=== PATIENT | male | born 1940 | race Caucasian/White ===

== ENCOUNTER 2018-09-21 12:00 | Outpatient (RCR) | payer MEDICARE | END 2018-12-20 | disposition home or self-care (01) | LOC: LAB 12:00 | PROVIDERS: ATTEND Pediatrics | DX: I48.91 Unspecified atrial fibrillation (principal) ==

== ENCOUNTER → 2018-09-21 | Outpatient (CLI) | payer MEDICARE, BC ==
[2018-09-21 13:13] LABS: BASOPHILS # (AUTO) 0.1 10^3/uL (0.0-0.1); BASOPHILS % (AUTO) 1 % (0-10); EOSINOPHILS # (AUTO) 0.2 10^3/uL (0.0-0.3); EOSINOPHILS % (AUTO) 2 % (0-10); HEMATOCRIT 35 % (40-54); HEMOGLOBIN 11.4 G/DL (13.3-17.7); LYMPHOCYTES % (AUTO) 10 % (12-44); MEAN CORPUSCULAR HEMOGLOBIN 31 PG (25-34); MEAN CORPUSCULAR HGB CONC 33 G/DL (32-36); MEAN CORPUSCULAR VOLUME 94 FL (80-99); MEAN PLATELET VOLUME 10.3 FL (7.4-10.4); MONOCYTES # (AUTO) 1.1 X 10^3 (0.0-1.0); MONOCYTES % (AUTO) 10 % (0-12); NEUTROPHILS # (AUTO) 8.3 X 10^3 (1.8-7.8); NEUTROPHILS % (AUTO) 78 % (42-75); PLATELET COUNT 195 10^3/uL (130-400); RED CELL DISTRIBUTION WIDTH 14.8 % (10.0-14.5); WHITE BLOOD COUNT 10.6 10^3/uL (4.3-11.0)
[2018-09-21 13:14] LABS: INR 1.3 (0.8-1.4); PROTHROMBIN TIME PATIENT 16.5 SEC (12.2-14.7)
[2018-09-21 14:36] LABS: BACTERIA,URINE NEGATIVE /HPF; BILIRUBIN,URINE NEGATIVE (NEGATIVE); CLARITY,URINE CLEAR; COLOR,URINE YELLOW; GLUCOSE, URINE (UA) NEGATIVE (NEGATIVE); KETONES,URINE NEGATIVE (NEGATIVE); LEUKOCYTE ESTERASE ,URINE NEGATIVE (NEGATIVE); NITRITE,URINE NEGATIVE (NEGATIVE); PH,URINE 5.5 (5-9); PROTEIN,URINE NEGATIVE (NEGATIVE); SQUAMOUS EPITHELIAL CELL,UR 0-2 /HPF; UROBILINOGEN,URINE 0.2 MG/DL (NORMAL)
[2018-09-21 15:08] LABS: CALCIUM 9.7 MG/DL (8.5-10.1); CREATININE SERUM 2.05 MG/DL (0.60-1.30); PHOSPHORUS 3.2 MG/DL (2.3-4.7); POTASSIUM 4.2 MMOL/L (3.6-5.0)
== END ==
LOC: LAB FS 11:44
PROVIDERS: ATTEND Internal Medicine Critical Care Medicine
DX: I48.91 Unspecified atrial fibrillation (principal); N18.3 Chronic kidney disease, stage 3 (moderate)
CPT/HCPCS: 36415; 80069; 81000; 82570; 83970; 84156; 85025; 85610

== ENCOUNTER → 2018-11-11 | Outpatient (CLI) | payer MEDICARE ==
[2018-11-11 16:25] LABS: CALCIUM 9.7 MG/DL (8.5-10.1); CREATININE SERUM 2.09 MG/DL (0.60-1.30)
== END ==
LOC: LAB FS 14:58
PROVIDERS: ATTEND Internal Medicine Critical Care Medicine
DX: N18.3 Chronic kidney disease, stage 3 (moderate) (principal); E87.70 Fluid overload, unspecified; R60.0 Localized edema
CPT/HCPCS: 36415; 80048

== ENCOUNTER → 2018-12-02 | Outpatient (CLI) | payer MEDICARE ==
[2018-12-02 16:20] LABS: INR 2.1 (0.8-1.4); PROTHROMBIN TIME PATIENT 24.5 SEC (12.2-14.7)
[2018-12-02 16:34] LABS: POTASSIUM 3.6 MMOL/L (3.6-5.0)
[2018-12-02 16:35] LABS: BILIRUBIN,TOTAL 0.7 MG/DL (0.1-1.0); CALCIUM 9.7 MG/DL (8.5-10.1); CREATININE SERUM 2.23 MG/DL (0.60-1.30); TOTAL PROTEIN 8.5 GM/DL (6.4-8.2)
[2018-12-03 15:15] LABS: FREE T4 (FREE THYROXINE) 1.1 NG/DL (0.70-1.48)
== END ==
LOC: LAB FS 15:11
PROVIDERS: ATTEND Pediatrics
DX: I48.91 Unspecified atrial fibrillation (principal); E03.8 Other specified hypothyroidism; E11.00 Type 2 diabetes mellitus with hyperosmolarity without nonketotic hyperglycemic-hyperosmolar coma (NKHHC); I10 Essential (primary) hypertension
CPT/HCPCS: 36415; 80053; 83036; 84439; 84443; 85610

== ENCOUNTER → 2019-04-01 | Outpatient (CLI) | payer MEDICARE ==
[2019-04-01 10:29] LABS: INR 1.9 (0.8-1.4)
[2019-04-01 10:34] LABS: BILIRUBIN,TOTAL 0.6 MG/DL (0.1-1.0); CREATININE SERUM 2.25 MG/DL (0.60-1.30); POTASSIUM 4.1 MMOL/L (3.6-5.0)
[2019-04-01 10:35] LABS: TOTAL PROTEIN 8.7 GM/DL (6.4-8.2)
[2019-04-02 14:56] LABS: FREE T4 (FREE THYROXINE) 1.07 NG/DL (0.70-1.48)
== END ==
LOC: LAB FS 09:09
PROVIDERS: ATTEND Pediatrics
DX: E11.22 Type 2 diabetes mellitus with diabetic chronic kidney disease (principal); E03.9 Hypothyroidism, unspecified; N18.3 Chronic kidney disease, stage 3 (moderate); Z92.29 Personal history of other drug therapy; Z79.4 Long term (current) use of insulin
CPT/HCPCS: 36415; 80053; 83036; 84439; 84443; 85610

== ENCOUNTER → 2019-04-01 | Outpatient (CLI) | payer MEDICARE ==
[2019-04-01 10:02] LABS: BASOPHILS % (AUTO) 1 % (0-10); EOSINOPHILS % (AUTO) 3 % (0-10); HEMATOCRIT 34 % (40-54); HEMOGLOBIN 10.8 G/DL (13.3-17.7); LYMPHOCYTES % (AUTO) 13 % (12-44); MEAN CORPUSCULAR HEMOGLOBIN 30 PG (25-34); MEAN CORPUSCULAR HGB CONC 32 G/DL (32-36); MEAN CORPUSCULAR VOLUME 94 FL (80-99); MEAN PLATELET VOLUME 10.4 FL (7.4-10.4); MONOCYTES % (AUTO) 10 % (0-12); NEUTROPHILS % (AUTO) 73 % (42-75); PLATELET COUNT 275 10^3/uL (130-400); WHITE BLOOD COUNT 9.5 10^3/uL (4.3-11.0)
[2019-04-01 10:03] LABS: BASOPHILS # (AUTO) 0.1 10^3/uL (0.0-0.1); EOSINOPHILS # (AUTO) 0.3 10^3/uL (0.0-0.3); LYMPHOCYTES # (AUTO) 1.2 X 10^3 (1.0-4.0)
[2019-04-01 11:32] LABS: BILIRUBIN,URINE NEGATIVE (NEGATIVE); CLARITY,URINE CLEAR; COLOR,URINE YELLOW; GLUCOSE, URINE (UA) NEGATIVE (NEGATIVE); KETONES,URINE NEGATIVE (NEGATIVE); LEUKOCYTE ESTERASE ,URINE NEGATIVE (NEGATIVE); NITRITE,URINE NEGATIVE (NEGATIVE); PROTEIN,URINE 1+ (NEGATIVE); SQUAMOUS EPITHELIAL CELL,UR RARE /HPF
[2019-04-02 12:00] LABS: POTASSIUM 4.6 MMOL/L (3.6-5.0)
[2019-04-02 12:01] LABS: ALBUMIN 3.9 GM/DL (3.2-4.5); CALCIUM 10.1 MG/DL (8.5-10.1); CREATININE SERUM 2.29 MG/DL (0.60-1.30)
[2019-04-02 15:24] LABS: PHOSPHORUS 3.2 MG/DL (2.3-4.7)
== END ==
LOC: LAB FS 09:14
PROVIDERS: ATTEND Internal Medicine Critical Care Medicine
DX: N18.3 Chronic kidney disease, stage 3 (moderate) (principal)
CPT/HCPCS: 36415; 80069; 81000; 82570; 83970; 84100; 84156; 85025

== ENCOUNTER 2021-09-18 11:09 | Emergency (ER) | payer MEDICARE ==
[~2021-09-18] VITALS: Ht 180.3 cm; Wt 106.6 kg
--- NOTE | 2021-09-18 11:31 | ED General ---
General Chief Complaint: Respiratory Problems Stated Complaint: SOB Nursing Triage Note: PT TO ROOM FS01 VIA [facility] EMS FROM [facility] WITH C/O SOB. Source of Information: Patient, EMS History of Present Illness Date Seen by Provider: Sep 18, 2021 Time Seen by Provider: 11:09 Initial Comments 80-year-old male presenting from [facility] by EMS out of concern for possible recurrent pleural effusion. Patient states he has had pleural effusions that had to be drained. He reports that was done approximately a month ago when he was at [place]. He felt like the fluid was building up again. He had requested a nurse to listen to his lungs because he felt like he was getting recurrent effusion over the last few days. He said no one had listened to his lungs so he had just asked the nurse to do that. When they listened to his lungs they said that they could hear breath sounds on the right side so they were concerned that he had enough fluid he needed to be rushed to the emergency department. EMS was activated and brought him to the ED. Patient states he wanted an chest xray to look at his lungs and see how much fluid might be present. He denies any new concerns otherwise. He has no chest pains. He has shortness of breath increased with exertion. Timing/Duration: 3-4 Days Severity: Mild Modifying Factors: worse with Movement (exertion makes his shortness of breath worse) Associated Systoms: No Chest Pain, No Cough, No Diaphoresis, No Fever/Chills, No Headaches, No Loss of Appetite, No Malaise, No Nausea/Vomiting, No Rash, No Seizure; Shortness of Air; No Syncope; Weakness (generalized) Allergies and Home Medications Allergies Coded Allergies: penicillin V (Verified Allergy, Unknown, 09/18/21) Patient Home Medication List Home Medication List Reviewed: Yes Review of Systems Review of Systems Constitutional: No chills, No diaphoresis, No fever EENTM: no symptoms reported Respiratory: see HPI Cardiovascular: see HPI, edema (chronic and no worse than usual) Gastrointestinal: no symptoms reported Genitourinary: no symptoms reported Musculoskeletal: no symptoms reported Skin: no symptoms reported Psychiatric/Neurological: No Symptoms Reported Past Twrvdly-Kyxxmw-Rallhl Hx Patient Social History Tobacco Use?: No Use of E-Cig and/or Vaping dev: No Substance use?: No Alcohol Use?: No Past Medical History Surgery/Hospitalization HX: CHF, HTN, Chronic kidney failure, Diabetes Mellitus Insulin Dependent Physical Exam Vital Signs Vital Signs - First Documented 09/18/21 09/18/21 11:09 12:20 Temp 36.6 Pulse 74 Resp 17 B/P (MAP) 128/62 (84) Pulse Ox 95 O2 Delivery Room Air Capillary Refill : Less Than 3 Seconds Height, Weight, BMI Height: '" Weight: lbs. oz. kg; 32.00 BMI Method: General Appearance: No Apparent Distress, Chronically ill Respiratory: Chest Non Tender, No Respiratory Distress, Accessory Muscle Use, Decreased Breath Sounds (especially in the bases right greater than left) Cardiovascular: Normal Peripheral Pulses, Irregularly Irregular Rectal: Deferred Extremity: Pedal Edema (3+ pitting edema BLE) Neurologic/Psychiatric: Alert Skin: Warm/Dry Progress/Results/Core Measures Suspected Sepsis SIRS Temperature: Pulse: 74 Respiratory Rate: 17 Blood Pressure 128 /62 Mean: 84 Results/Orders My Orders Orders - ILA GREEN MD Ekg Tracing (09/18/21 11:17) Chest Pa/Lat (2 View) (09/18/21 11:17) Vital Signs/I&O 09/18/21 09/18/21 11:09 12:20 Temp 36.6 Pulse 74 72 Resp 17 22 B/P (MAP) 128/62 (84) 139/50 Pulse Ox 95 O2 Delivery Room Air Capillary Refill : Less Than 3 Seconds Blood Pressure Mean: 84 Progress Note #1: Progress Note Obtain electrocardiogram and a chest x-ray. As patient had no other concerns at the moment will defer blood work for now. He was interested in seeing how much pleural effusion he might have so the x-ray will help show that. Progress Note #2: Progress Note Chest x-ray shows bilateral pleural effusion right worse than left. Nothing acute enough to require thoracentesis, especially with his oxygen saturation staying in mid 90s. Encouraged patient to continue on his medications and check back with the clinic. Given the information about the surgeons as he may require thoracentesis if he has increasing shortness of breath or fluid gets worse. ECG Initial ECG Impression Date: Sep 18, 2021 Initial ECG Impression Time: 11:15 Initial ECG Rate: 67 Initial ECG Rhythm: A Fib/Flutter Initial ECG Comparisson: No Previous ECG Available Comment Atrial fibrillation with a heart rate of 67 bpm. Right bundle branch block. No acute ST elevation. There is global T wave flattening. QT interval 438 ms with a QTc interval 463 ms. There is no prior tracing available for comparison. Diagnostic Imaging Diagonstic Imaging: Xray Plain Films/CT/US/NM/MRI: chest Comments [facility] [place], [place] NAME: FELIBERTO ARANDA [facility] REC#: [id number] PT STATUS: REG ER : 1940 PHYSICIAN: ILA GREEN MD ADMIT DATE: 09/18/21/ER FS Signed Date of Exam:09/18/21 CHEST PA/LAT (2 VIEW) CLINICAL INDICATIONS: Patient with shortness of breath. Patient has history of pleural effusions. EXAM: Chest x-ray PA and lateral views. COMPARISON: None. FINDINGS: There are small to moderate sized right pleural effusion and a small left pleural effusion. There is left basilar patchy airspace opacities and right lung base partial groundglass consolidation. The right side is affected more than the left. There is cardiomegaly with mild pulmonary vascular congestion. Bones show no significant abnormality. There is no pneumothorax. IMPRESSION: 1: There is cardiomegaly with mild pulmonary vascular congestion which may be seen with congestive heart failure. 2: There is bilateral pleural effusions (right side more than the left) and bibasilar atelectasis versus infiltrates (right side more than the left). These findings may also be related to pulmonary congestion. Dictated by: Dictated on workstation # [id number] Dict: 09/18/21 1152 Trans: 09/18/21 1202 [facility] [id number] Interpreted by: JIGNESH WAN MD Electronically signed by: JIGNESH WAN MD 09/18/21 1202 Reviewed: Reviewed by Me Departure Impression Primary Impression: Shortness of breath Additional Impressions: Recurrent pleural effusion on left Recurrent pleural effusion on right Disposition: 01 HOME, SELF-CARE Condition: Stable Departure-Patient Inst. Decision time for Depature: 11:58 Referrals: LUH KWONG MD (PCP/Family) Primary Care Physician ASHLEY DEMPSEY MD, TAKAAKI MD Patient Instructions: Shortness of Breath, Adult ED, Pleural Effusion (DC) Add. Discharge Instructions: You do have a pleural effusion on both sides but a little more on the right side. It is in the lower part of your lung at this point and not severe enough that you would have to get the fluid drained off at this point. Check with clinic or surgeon about scheduling outpatient procedure to get fluid drained off if you have continued trouble breathing or more issues with this. All discharge instructions reviewed with patient and/or family. Voiced understanding. Copy Copies To 1: ASHLEY DEMPSEY MD, MARC E MD Sep 18, 2021 11:31
--- NOTE | 2021-09-18 11:56 | Diagnostic Imaging Report ---
CLINICAL INDICATIONS: Patient with shortness of breath. Patient has history of pleural effusions. EXAM: Chest x-ray PA and lateral views. COMPARISON: None. FINDINGS: There are small to moderate sized right pleural effusion and a small left pleural effusion. There is left basilar patchy airspace opacities and right lung base partial groundglass consolidation. The right side is affected more than the left. There is cardiomegaly with mild pulmonary vascular congestion. Bones show no significant abnormality. There is no pneumothorax. IMPRESSION: 1: There is cardiomegaly with mild pulmonary vascular congestion which may be seen with congestive heart failure. 2: There is bilateral pleural effusions (right side more than the left) and bibasilar atelectasis versus infiltrates (right side more than the left). These findings may also be related to pulmonary congestion. Dictated by: Dictated on workstation # [id number]
[2021-09-18 12:20] VITALS: BP 139/50
== END 2021-09-18 12:21 | disposition home or self-care (01) ==
LOC: EDUNIT# 11:09 → ER FS 11:10
DX: R06.02 Shortness of breath (principal); J90 Pleural effusion, not elsewhere classified
CPT/HCPCS: 71046; 93005

== ENCOUNTER 2021-10-11 10:37 | Emergency (ER) | payer MEDICARE ==
[~2021-10-11] VITALS: Ht 180 cm; Wt 108.0 kg
--- NOTE | 2021-10-11 11:10 | ED General ---
General Chief Complaint: General Problems/Pain Stated Complaint: WEAKNESS Nursing Triage Note: Pt here from assisted living with low hgb. Hgb was 6.9. Pt has reported wound to his coccyx. Pt is alert and oriented. Pt has panting rr but he reports this is normal for him. Source of Information: Patient Exam Limitations: No Limitations History of Present Illness Date Seen by Provider: Oct 11, 2021 Time Seen by Provider: 10:54 Initial Comments Here from assisted living facility in [place] with report of low hemoglobin. Patient does have history of heart failure, renal failure and anemia secondary to that. He has had to have blood transfusion previously. Is also had to have fluid drained from the lung space abdominal space secondary to heart failure. He does not want dialysis and has not an option for him. He is here today because he has had increasing shortness of breath and had hemoglobin noted to be 6.9. He follows with [facility] with Dr. Dempsey. Denies fevers, chills, cough, sore throat, runny nose or diarrhea. Denies chest pain. Does sharma ve significant edema of both legs but states that is unchanged. Timing/Duration: 1 Week, Getting Worse Severity: Mild, Moderate Associated Systoms: No Chest Pain, No Cough, No Fever/Chills, No Nausea/Vomiting; Shortness of Air, Weakness Allergies and Home Medications Allergies Coded Allergies: penicillin V (Verified Allergy, Unknown, 09/18/21) Patient Home Medication List Home Medication List Reviewed: Yes Review of Systems Review of Systems Constitutional: see HPI; No chills, No fever; weakness EENTM: no symptoms reported Respiratory: No cough; short of breath Cardiovascular: No chest pain; edema Gastrointestinal: No diarrhea, No nausea, No vomiting Genitourinary: no symptoms reported Musculoskeletal: no symptoms reported Skin: change in color; No rash Psychiatric/Neurological: No Symptoms Reported All Other Systems Reviewed Negative Unless Noted: Yes Past Uhunveo-Szqgcf-Rzussg Hx Patient Social History Tobacco Use?: No Use of E-Cig and/or Vaping dev: No Substance use?: No Alcohol Use?: No Past Medical History Surgery/Hospitalization HX: CHF, HTN, Chronic kidney failure, Diabetes Mellitus Insulin Dependent Surgeries: Yes Respiratory: Yes Sleep Apnea Cardiac: Yes Atrial Fibrillation, Hypertension Neurological: No Genitourinary: Yes Renal Failure Gastrointestinal: Yes Liver Disease/Jaundice Endocrine: Yes Diabetes, Insulin dep Family Medical History Reviewed Nursing Family Hx No Pertinent Family Hx Physical Exam Vital Signs Vital Signs - First Documented 10/11/21 10:51 Temp 36.8 Pulse 62 Resp 18 B/P (MAP) 131/51 (77) Pulse Ox 98 O2 Delivery Nasal Cannula O2 Flow Rate 3.00 Capillary Refill : Height, Weight, BMI Height: '" Weight: lbs. oz. kg; 33.00 BMI Method: General Appearance: Chronically ill, Obese HEENT: PERRL/EOMI, Pharynx Normal Neck: Non Tender, Supple Respiratory: Lungs Clear, Decreased Breath Sounds Cardiovascular: Regular Rate, Rhythm, No Murmur Gastrointestinal: Soft, Distended Back: Normal Inspection, No CVA Tenderness, No Vertebral Tenderness Extremity: Non Tender, Pedal Edema (3+ pitting edema to upper legs bilateral) Neurologic/Psychiatric: Alert, Oriented x3 Skin: Normal Color, Warm/Dry Progress/Results/Core Measures Suspected Sepsis SIRS Temperature: Pulse: 62 Respiratory Rate: 18 Laboratory Tests 10/11/21 11:30: White Blood Count 7.4 Blood Pressure 131 /51 Mean: 77 Laboratory Tests 10/11/21 11:30: Creatinine 3.37H, Platelet Count 194, Total Bilirubin 1.0 Results/Orders Lab Results Laboratory Tests Test 10/11/21 11:30 10/11/21 14:19 Range/Units White Blood Count 7.4 4.3-11.0 10^3/uL Red Blood Count 2.38 L 4.30-5.52 10^6/uL Hemoglobin 7.4 L 13.3-17.7 g/dL Hematocrit 24 L 40-54 % Mean Corpuscular Volume 101 H 80-99 fL Mean Corpuscular Hemoglobin 31 25-34 pg Mean Corpuscular Hemoglobin Concent 31 L 32-36 g/dL Red Cell Distribution Width 19.8 H 10.0-14.5 % Platelet Count 194 130-400 10^3/uL Mean Platelet Volume 10.4 9.0-12.2 fL Immature Granulocyte % (Auto) 1 % Neutrophils (%) (Auto) 80 H 42-75 % Lymphocytes (%) (Auto) 6 L 12-44 % Monocytes (%) (Auto) 9 0-12 % Eosinophils (%) (Auto) 3 0-10 % Basophils (%) (Auto) 1 0-10 % Neutrophils # (Auto) 5.9 1.8-7.8 10^3/uL Lymphocytes # (Auto) 0.4 L 1.0-4.0 10^3/uL Monocytes # (Auto) 0.7 0.0-1.0 10^3/uL Eosinophils # (Auto) 0.2 0.0-0.3 10^3/uL Basophils # (Auto) 0.1 0.0-0.1 10^3/uL Immature Granulocyte # (Auto) 0.1 0.0-0.1 10^3/uL Neutrophils % (Manual) 84 % Lymphocytes % (Manual) 6 % Monocytes % (Manual) 6 % Eosinophils % (Manual) 4 % Polychromasia SLIGHT Hypochromasia SLIGHT Poikilocytosis SLIGHT Anisocytosis MODERATE Microcytosis SLIGHT Macrocytosis SLIGHT Sodium Level 132 L 135-145 MMOL/L Potassium Level 4.9 3.6-5.0 MMOL/L Chloride Level 97 L 98-107 MMOL/L Carbon Dioxide Level 25 21-32 MMOL/L Anion Gap 10 5-14 MMOL/L Blood Urea Nitrogen 103 *H 7-18 MG/DL Creatinine 3.37 H 0.60-1.30 MG/DL Estimat Glomerular Filtration Rate 18 BUN/Creatinine Ratio 31 Glucose Level 125 H 70-105 MG/DL Calcium Level 8.6 8.5-10.1 MG/DL Corrected Calcium 9.6 8.5-10.1 MG/DL Magnesium Level 2.2 1.6-2.4 MG/DL Total Bilirubin 1.0 0.1-1.0 MG/DL Aspartate Amino Transf (AST/SGOT) 17 5-34 U/L Alanine Aminotransferase (ALT/SGPT) 10 0-55 U/L Alkaline Phosphatase 151 H 40-136 U/L Ammonia 67 H 11-32 UMOL/L Troponin I < 0.028 <0.028 NG/ML B-Type Natriuretic Peptide 834.4 H <100.0 PG/ML Total Protein 6.4 6.4-8.2 GM/DL Albumin 2.7 L 3.2-4.5 GM/DL Glucometer 113 H 70-110 MG/DL My Orders Orders - BRICE GLOVER MD Chest 1 View, Ap/Pa Only (10/11/21 10:58) Bnp [place] (10/11/21 10:58) Cbc With Automated Diff (10/11/21 10:58) Comprehensive Metabolic Panel (10/11/21 10:58) Magnesium (10/11/21 10:58) Troponin I Brad (10/11/21 10:58) Red Cells Leukocytes Reduced (10/11/21 10:58) Ekg Tracing (10/11/21 10:58) O2 (10/11/21 10:58) Monitor-Rhythm Ecg Trace Only (10/11/21 10:58) Type And Screen (10/11/21 10:58) Ammonia (10/11/21 11:20) Manual Differential (10/11/21 11:30) Ns Iv 500 Ml (Sodium Chloride 0.9%) (10/11/21 12:41) Oxycodone Immediate Rel Tablet (Oxyir Ta (10/11/21 13:30) Medications Given in ED Current Medications Medications Dose Ordered Sig/Nancy Route Start Time Stop Time Status Last Admin Dose Admin Oxycodone HCl 5 mg ONCE ONCE PO 10/11/21 13:30 10/11/21 13:31 DC 10/11/21 14:41 5 MG Vital Signs/I&O 10/11/21 10/11/21 10/11/21 10/11/21 10:51 11:17 11:17 13:06 Temp 36.8 35.5 Pulse 62 66 Resp 18 20 B/P (MAP) 131/51 (77) 122/57 Pulse Ox 98 97 95 O2 Delivery Nasal Cannula Nasal Cannula Nasal Cannula Nasal Cannula O2 Flow Rate 3.00 3.00 3.00 3.00 10/11/21 10/11/21 10/11/21 10/11/21 13:16 13:31 13:46 14:01 Temp 35.6 35.6 35.4 35.6 Pulse 60 58 56 60 Resp 24 20 22 20 B/P (MAP) 127/51 125/56 114/61 117/69 Pulse Ox 94 96 94 95 O2 Delivery Nasal Cannula Nasal Cannula Nasal Cannula Nasal Cannula O2 Flow Rate 3.00 3.00 3.00 3.00 Capillary Refill : Blood Pressure Mean: 77 Progress Note : Progress Note Seen and evaluated. IV, labs, EKG and chest x-ray ordered. We will type and cross for 1 unit and give if hemoglobin is low especially in light of respiratory distress symptoms and heart failure. We will check chest x-ray to evaluate for pleural effusions. Patient remains on oxygen at typical at 2 L via nasal cannula. Monitor patient. 1230: I have reviewed the current findings with the patient and family. We will go ahead and give a unit of blood after I have spoken with the pathologist. She agrees that he meets criteria given his heart failure. I did have the difficult conversation with the patient and family regarding goals of care. Patient states that he is ready to go and he is okay to . The is not ready. The daughter does appear to at least e mbraced the conversation. I have spoken with palliative care to see the patient to at least give him information on hospice possibilities in the [facility]. Patient and family were open to that information. Monitor patient. 1457: We have given unit of blood. Palliative care team did talk with the patient and family and gave information on [facility] if they would like to pursue that in the future. They were very appreciative of the conversation, care and time. Patient will go back to his assisted living facility via EMS as he requires oxygen and has buttock wounds that would prevent him from sitting without increasing pain significantly. He is unable to sit up in a wheelchair. EMS has been called from [facility] and they will come get him and take him back to the facility. Patient and family very appreciative of this as well. Tolerated blood well without complications. This facility was closest medical facility with blood products available for transfusion. ECG Initial ECG Impression Date: Oct 11, 2021 Initial ECG Impression Time: 11:08 Initial ECG Rate: 67 Initial ECG Rhythm: A Fib/Flutter Comment Atrial fibrillation with right bundle branch block. Normal axis. No evidence of ST elevation [place]. Similar to previous of 09/18/2021. Interpreted by me. Diagnostic Imaging Diagonstic Imaging: Xray Plain Films/CT/US/NM/MRI: chest Comments [facility] [place], [place] NAME: KATIAMARYBELFELIBERTO [facility] REC#: [id number] PT STATUS: REG ER : 1940 PHYSICIAN: BRICE GLOVER MD ADMIT DATE: 10/11/21/ER Draft Date of Exam:10/11/21 CHEST 1 VIEW, AP/PA ONLY INDICATION: Low hemoglobin. TIME OF EXAM: 11:25 AM FINDINGS: Heart is enlarged. There appear to be bilateral effusions and bibasilar pulmonary infiltrates. There is no pneumothorax detected. IMPRESSION: Cardiomegaly with bibasilar infiltrates and pleural effusions. Dictated on workstation # [id number] Dict: 10/11/21 1151 Trans: 10/11/21 1153 [id number] Interpreted by: JOSUE WALKER MD Electronically signed by: Departure Impression Primary Impression: Anemia Qualified Codes: D64.9 - Anemia, unspecified Additional Impressions: Chronic congestive heart failure Qualified Codes: I50.9 - Heart failure, unspecified Chronic kidney disease Qualified Codes: N18.4 - Chronic kidney disease, stage 4 (severe) Chronic liver failure Qualified Codes: K72.10 - Chronic hepatic failure without coma Decubitus ulcer of buttock, stage 3 Qualified Codes: L89.303 - Pressure ulcer of unspecified buttock, stage 3 Disposition: 01 HOME, SELF-CARE Condition: Stable Transfer Transfer Facility: Transferred back to nursing care facility via EMS due to buttock wounds and oxygen requirement. Method of Transfer: EMS ([facility]) Departure-Patient Inst. Decision time for Depature: 15:01 Referrals: LUH KWONG MD (PCP/Family) Primary Care Physician Patient Instructions: Heart Failure, Adult (DC), Kidney Failure (DC), Anemia of Inflammation Add. Discharge Instructions: All discharge instructions reviewed with patient and/or family. Voiced understanding. Your blood counts were low and you were given 1 unit of blood. You do not meet criteria for removing fluid in the chest at this point. You can call the surgeon above if you feel like you are having increasing problems with back. Review hospice information that was given and discuss this further with your doctor if desired. Continue home medications as previously prescribed. Return for worse pain, fever, vomiting, weakness, breathing problems or other concerns as needed. Copy Copies To 1: ASHLEY DEMPSEY MD, TIMOTHY D MD Oct 11, 2021 11:10
[2021-10-11 11:42] LABS: BASOPHILS # (AUTO) 0.1 10^3/uL (0.0-0.1); BASOPHILS % (AUTO) 1 % (0-10); EOSINOPHILS # (AUTO) 0.2 10^3/uL (0.0-0.3); EOSINOPHILS % (AUTO) 3 % (0-10); HEMATOCRIT 24 % (40-54); HEMOGLOBIN 7.4 g/dL (13.3-17.7); LYMPHOCYTES # (AUTO) 0.4 10^3/uL (1.0-4.0); LYMPHOCYTES % (AUTO) 6 % (12-44); MEAN CORPUSCULAR HEMOGLOBIN 31 pg (25-34); MEAN CORPUSCULAR HGB CONC 31 g/dL (32-36); MEAN CORPUSCULAR VOLUME 101 fL (80-99); MEAN PLATELET VOLUME 10.4 fL (9.0-12.2); MONOCYTES # (AUTO) 0.7 10^3/uL (0.0-1.0); MONOCYTES % (AUTO) 9 % (0-12); NEUTROPHILS # (AUTO) 5.9 10^3/uL (1.8-7.8); NEUTROPHILS % (AUTO) 80 % (42-75); PLATELET COUNT 194 10^3/uL (130-400); WHITE BLOOD COUNT 7.4 10^3/uL (4.3-11.0)
[2021-10-11 11:52] LABS: ALBUMIN 2.7 GM/DL (3.2-4.5)
[2021-10-11 11:53] LABS: CHLORIDE 97 MMOL/L (98-107); POTASSIUM 4.9 MMOL/L (3.6-5.0); SODIUM 132 MMOL/L (135-145)
[2021-10-11 11:54] LABS: AMMONIA 67 UMOL/L (11-32); CALCIUM 8.6 MG/DL (8.5-10.1)
--- NOTE | 2021-10-11 11:54 | Diagnostic Imaging Report ---
INDICATION: Low hemoglobin. TIME OF EXAM: 11:25 AM FINDINGS: Heart is enlarged. There appear to be bilateral effusions and bibasilar pulmonary infiltrates. There is no pneumothorax detected. IMPRESSION: Cardiomegaly with bibasilar infiltrates and pleural effusions. Dictated by: Dictated on workstation # [id number]
[2021-10-11 11:55] LABS: GLUCOSE 125 MG/DL (70-105); TOTAL PROTEIN 6.4 GM/DL (6.4-8.2)
[2021-10-11 11:56] LABS: CARBON DIOXIDE 25 MMOL/L (21-32)
[2021-10-11 11:58] LABS: ALKALINE PHOSPHATASE 151 U/L (40-136)
[2021-10-11 11:59] LABS: CREATININE SERUM 3.37 MG/DL (0.60-1.30); GFR ESTIMATED 18
[2021-10-11 12:00] LABS: BUN/CREATININE RATIO 31
[2021-10-11 12:02] LABS: ALANINE AMINOTRANSFERASE 10 U/L (0-55); MAGNESIUM 2.2 MG/DL (1.6-2.4)
[2021-10-11 12:09] LABS: ANISOCYTOSIS MODERATE; EOSINOPHILS % (MANUAL) 4 %; HYPOCHROMASIA SLIGHT; LYMPHOCYTES % (MANUAL) 6 %; MICROCYTOSIS SLIGHT; MONOCYTES % (MANUAL) 6 %; NEUTROPHILS % (MANUAL) 84 %; POIKILOCYTOSIS SLIGHT; POLYCHROMASIA SLIGHT
[2021-10-11] MEDS ORDERED: NS IV 500 ML 500 ML ONE (12:41)
[2021-10-11 13:06] VITALS: BP 122/57
[2021-10-11 13:16] VITALS: BP 127/51
[2021-10-11 13:31] VITALS: BP 125/56
[2021-10-11 13:46] VITALS: BP 114/61
[2021-10-11 14:01] VITALS: BP 117/69
== END 2021-10-11 16:22 | disposition home or self-care (01) ==
LOC: EDUNIT# 10:37 → ER 10:38
DX: I13.0 Hypertensive heart and chronic kidney disease with heart failure and stage 1 through stage 4 chronic kidney disease, or unspecified chronic kidney disease (principal); I50.9 Heart failure, unspecified; N18.4 Chronic kidney disease, stage 4 (severe); D63.1 Anemia in chronic kidney disease; K72.10 Chronic hepatic failure without coma; L89.303 Pressure ulcer of unspecified buttock, stage 3; E11.22 Type 2 diabetes mellitus with diabetic chronic kidney disease; Z79.4 Long term (current) use of insulin
CPT/HCPCS: 71045; 80053; 82140; 82947; 83735; 83880; 84484; 85007; 85027; 86850; 86900; 86901; 86922; 93041; 99284; P9016; 36415; 93005